=== PATIENT | female | born 1980 | race Two or more races ===

== ENCOUNTER 2024-08-08 07:56 | Inpatient (IN) | payer MEDICAID ==
[~2024-08-08] VITALS: Ht 167.6 cm; Wt 80.1 kg
[2024-08-08 09:07] LABS: Basophils # (auto) 0 10 ^3/uL (0-0.2); Basophils % (auto) 0.4 % (0.0-2.0); Eosinophils # (auto) 0.2 10 ^3/uL (0-0.8); Eosinophils % (auto) 2.1 % (0.0-7.0); Hemoglobin 15.1 g/dL (12.2-16.2); Lymphocytes # (auto) 0.9 10 ^3/uL (0.4-5.4); Lymphocytes % (auto) 12.7 % (10.0-50.0); Mean Corpuscular Hemoglobin 32.4 pg (28.0-32.0); Mean Corpuscular Hgb Conc. 34.3 g/dL (32.0-36.0); Mean Corpuscular Volume 94.5 fL (80.0-100.0); Monocytes # (auto) 0.5 10 ^3/uL (0-1.3); Monocytes % (auto) 6.2 % (0.0-12.0); Neutrophils # (auto) 5.8 10 ^3/uL (1.6-8.6); Neutrophils % (auto) 78.6 % (37.0-80.0); Nucleated Red Blood Cells % 0.1 %; Platelet Count (auto) 162 10^3/uL (140-450); Red Blood Cells 4.66 10^6/uL (4.0-5.20); Red Cell Distribution Width 13.1 % (11.8-14.3); White Blood Cell 7.4 10^3/uL (4.4-10.8)
[2024-08-08 09:10] LABS: Chloride 106 mmol/L (98-107); Potassium 3.9 mmol/L (3.5-5.1); Sodium 139 mmol/L (136-145)
[2024-08-08 09:11] LABS: Anion Gap 4 (5-15); Carbon Dioxide 29 mmol/L (20-31)
[2024-08-08 09:12] LABS: Calcium 9.8 mg/dL (8.7-10.4)
[2024-08-08 09:16] LABS: Glucose 101 mg/dL (74-106)
[2024-08-08 09:17] LABS: Blood Urea Nitrogen 8 mg/dL (9-23)
[2024-08-08 09:37] LABS: Urine Bacteria FEW /hpf (None Seen); Urine Blood Negative /uL (Negative); Urine Clarity Turbid (Clear); Urine Color Light-Yellow (Yellow); Urine Mucus FEW (None Seen); Urine Protein, UAD Negative (Negative); Urine Specific Gravity 1.021 (1.001-1.035); Urine Urobilinogen Normal (Negative); Urine WBC 3 /hpf (0 - 5); Urine pH 5.5 (5.0-9.0)
[2024-08-08 10:00] LABS: Amphetamine Screen, Urine Neg (NEGATIVE); Barbiturate Scree,Urine Neg (NEGATIVE); Benzodiazephine Screen, Urine Neg (NEGATIVE); Cannabinoid Screen, Urine Neg (NEGATIVE); Cocaine Screen, Urine Neg (NEGATIVE); Opiate Scree,Urine Neg (NEGATIVE); Phencyclidine Screen, Urine Neg (NEGATIVE)
[2024-08-08 11:38] VITALS: PULSE 60; RESP 17; O2SAT 100
[2024-08-08] MEDS ORDERED: DOCUSATE SOD 100 MG CAP PO PRN (14:30)
[2024-08-08] MEDS ORDERED: NITROGLYCERIN 0.4 MG SL TAB SL PRN (14:30)
[2024-08-08] MEDS ORDERED: ONDANSETRON HCL 4 MG/2 ML VIAL IV PRN (14:30)
[2024-08-08] MEDS ORDERED: MORPHINE SULFATE INJ 2 MG/ml SYRG IV PRN (14:30)
[2024-08-08] MEDS: GABAPENTIN 100 MG CAP PO ONE (15:08)
[2024-08-08] MEDS: SODIUM CHLORIDE 0.9% 1,000 ML IV SCH (15:56)
[2024-08-08] MEDS ORDERED: LORazepam 2MG/ML-1ML VIAL IV PRN (22:00)
[2024-08-08] MEDS: GABAPENTIN 100 MG CAP PO SCH (22:10)
[2024-08-09 06:54] LABS: Basophils # (auto) 0 10 ^3/uL (0-0.2); Basophils % (auto) 0.4 % (0.0-2.0); Eosinophils # (auto) 0.2 10 ^3/uL (0-0.8); Eosinophils % (auto) 3.3 % (0.0-7.0); Hematocrit 42.9 % (36.0-46.0); Hemoglobin 14.6 g/dL (12.2-16.2); Lymphocytes # (auto) 1.3 10 ^3/uL (0.4-5.4); Lymphocytes % (auto) 21.9 % (10.0-50.0); Mean Corpuscular Hemoglobin 32.1 pg (28.0-32.0); Mean Corpuscular Hgb Conc. 34.1 g/dL (32.0-36.0); Mean Corpuscular Volume 94.2 fL (80.0-100.0); Monocytes # (auto) 0.5 10 ^3/uL (0-1.3); Monocytes % (auto) 7.9 % (0.0-12.0); Neutrophils # (auto) 3.8 10 ^3/uL (1.6-8.6); Neutrophils % (auto) 66.5 % (37.0-80.0); Nucleated Red Blood Cells % 0.1 %; Platelet Count (auto) 159 10^3/uL (140-450); Red Blood Cells 4.56 10^6/uL (4.0-5.20); Red Cell Distribution Width 13.2 % (11.8-14.3); White Blood Cell 5.7 10^3/uL (4.4-10.8)
[2024-08-09 07:03] LABS: Alanine Aminotransferase 99 U/L (7-40); Albumin 4.2 g/dL (3.2-4.8); Alkaline Phosphatase 65 U/L (46-116); Anion Gap 5 (5-15); Aspartate Aminotransferase 47 U/L (13-40); BUN/Creatinine Ratio 8.3 (10.0-20.0); Bilirubin, Total 1.8 mg/dL (0.2-1.0); Blood Urea Nitrogen 6 mg/dL (9-23); Calcium 9.5 mg/dL (8.7-10.4); Carbon Dioxide 27 mmol/L (20-31); Chloride 107 mmol/L (98-107); Glucose 112 mg/dL (74-106); Potassium 4.3 mmol/L (3.5-5.1); Sodium 139 mmol/L (136-145); Total Protein 6.9 g/dL (5.7-8.2)
[2024-08-09 11:19] VITALS: PULSE 78; RESP 16; O2SAT 98
[2024-08-09 16:18] VITALS: PULSE 63; RESP 18; O2SAT 99
[2024-08-09 17:00] VITALS: BP 117/64; PULSE 63; RESP 18; TEMP 98.3; O2SAT 99
[2024-08-09] MEDS: PANTOPRAZOLE 40 MG TAB PO ONE (18:12)
[2024-08-09 20:00] VITALS: RESP 18
[2024-08-09 20:47] LABS: % Iron Saturation 16.3 % (15-50)
[2024-08-09 21:00] VITALS: BP 112/72; PULSE 77; RESP 18; TEMP 97.5; O2SAT 97
[2024-08-09] MEDS: PREGABALIN 25 MG CAP PO SCH (22:00)
[2024-08-10 01:00] VITALS: BP 96/67; PULSE 72; RESP 18; TEMP 98.1; O2SAT 97
[2024-08-10 05:00] VITALS: BP 100/54; PULSE 65; RESP 18; TEMP 97.7; O2SAT 98
[2024-08-10] MEDS: PANTOPRAZOLE 40 MG TAB PO SCH (06:00)
[2024-08-10 08:10] VITALS: PULSE 63; RESP 19; O2SAT 99
[2024-08-10 09:00] VITALS: BP 113/70; PULSE 63; RESP 19; TEMP 98.4; O2SAT 99
[2024-08-10] MEDS ORDERED: PREG50CA PO (10:14)
[2024-08-10 13:00] VITALS: BP 119/78; PULSE 66; RESP 17; TEMP 98.6; O2SAT 98
[2024-08-10 13:59] VITALS: BP 119/78; PULSE 66; RESP 17; TEMP 37; O2SAT 98
[2024-08-12 09:19] LABS: Hepatitis B Surface Antigen Negative (Negative)
[2024-08-12 09:40] LABS: Hepatitis C Antibody Negative (Negative)
[2024-08-12 09:42] LABS: Hepatitis B Core Total AB Negative (Negative)
[2024-08-12 11:25] LABS: Hepatitis A Total Antibody Positive (Negative); Hepatitis B Surface Antibody Negative (Negative); Hepatitis B Surface Antigen Negative (Negative); Hepatitis C Antibody Negative (Negative)
== END 2024-08-10 14:25 | disposition home or self-care (01) | DRG 48 ==
LOC: ER 07:56 → OVERFLOW 14:36 → CENTRAL 08-09 14:57
PROVIDERS: ADMIT Internal Medicine; ATTEND Internal Medicine
DX: G56.03 Carpal tunnel syndrome, bilateral upper limbs (principal); E80.6 Other disorders of bilirubin metabolism; N30.00 Acute cystitis without hematuria; M48.07 Spinal stenosis, lumbosacral region; M48.061 Spinal stenosis, lumbar region without neurogenic claudication; M47.26 Other spondylosis with radiculopathy, lumbar region; G89.29 Other chronic pain; R74.01 Elevation of levels of liver transaminase levels; Z83.3 Family history of diabetes mellitus; Z82.49 Family history of ischemic heart disease and other diseases of the circulatory system; Z79.899 Other long term (current) drug therapy
CPT/HCPCS: 36415; 70450; 72131; 72148; 80048; 80053; 80307; 81001; 81025; 82306; 82607; 82728; 83036; 83540; 83550; 84443; 85025; 86431; 86704; 86706; 86708; 86803; 87086; 87340; 93005; G0378